=== PATIENT | male | born 1940 | race Caucasian/White ===

== ENCOUNTER 2021-12-31 14:36 | Emergency (ER) | payer OTHER ==
[~2021-12-31] VITALS: Ht 175.3 cm; Wt 72.6 kg
[2021-12-31 14:41] VITALS: BP 121/68
--- NOTE | 2021-12-31 14:41 | NUR ---
BIBA BLS TO ER BED 4
[2021-12-31] MEDS ORDERED: NACL 0.9% 1,000 ML IV ONE (15:05)
--- NOTE | 2021-12-31 15:10 | NUR ---
81 y/o male biba from home c/o generalized weakness x today. Per EMS, patient had a fever on scene, patients temp at triage was 99.5. Patient was discharged from [facility] today and was prescribed Zpack. Denies any chills or SOB. Denies any sick contacts in household. Medical History: AFIB, PACEMAKER, HTN NKDA
[2021-12-31 15:30] LABS: HEMATOCRIT 37.2 % (36-52); HEMOGLOBIN 12.2 g/dL (12.0-18.0); MEAN CORPUSCULAR HEMOGLOBIN 33 pg (27-31); MEAN CORPUSCULAR HGB CONC 33 g/dL (33-37); MEAN CORPUSCULAR VOLUME 100.5 fL (80-94); PLATELET COUNT (AUTO) 116 K/uL (140-450); RED CELL DISTRIBUTION WIDTH 15.5 % (11.6-13.7); WHITE BLOOD COUNT (AUTO) 4.5 K/uL (4.8-10.8)
[2021-12-31 15:49] LABS: MAGNESIUM 1.6 mg/dL (1.8-2.4); PHOSPHORUS 3.2 mg/dL (2.5-4.9)
[2021-12-31 16:00] LABS: ANION GAP 14.6 (8-16); CARBON DIOXIDE 21.6 mmol/L (21-32); CHLORIDE 108 mmol/L (98-107); CREATININE 1.3 mg/dL (0.6-1.3); GLUCOSE 99 mg/dL (74-106); POTASSIUM 4.2 mmol/L (3.5-5.1); SODIUM SERUM 140 mmol/L (136-145); UREA NITROGEN, BLOOD 28 mg/dL (7-18)
[2021-12-31] MEDS ORDERED: MAGNESIUM CHLORIDE 64 MG TABEC PO SCH (16:05)
[2021-12-31 16:38] LABS: MONOCYTES % (MANUAL) 15 % (5-12)
[2021-12-31 16:39] LABS: EOSINOPHILS % (MANUAL) 2 % (0-4)
[2021-12-31 16:40] LABS: LYMPHOCYTES % (MANUAL) 12 % (20-46)
[2021-12-31 17:35] LABS: APPEARANCE,URINE CLEAR (CLEAR); BILIRUBIN,URINE NEGATIVE (NEGATIVE); BLOOD, URINE TRACE-I (NEGATIVE); COLOR,URINE YELLOW (YELLOW); LEUKOCYTE ESTERASE ,URINE NEGATIVE (NEGATIVE); NITRITE, URINE NEGATIVE (NEGATIVE); UGLUCOSE NEGATIVE (NEGATIVE)
--- NOTE | 2021-12-31 17:36 | NUR ---
PT TO ER BED 11
[2021-12-31 18:02] LABS: RBC,URINE NONE SEEN /HPF (0-5); WBC,URINE NONE SEEN /HPF (0-5); YEAST,URINE None Seen /HPF (None Seen)
[2021-12-31 18:03] LABS: TRICHOMONAS,URINE None Seen /HPF (None Seen)
--- NOTE | 2021-12-31 19:00 | NUR ---
Mary-care provided. Provided with clean pants and fresh brief.
--- NOTE | 2021-12-31 19:18 | NUR ---
Report given to JERSEY Barakat for transfer of care.
--- NOTE | 2021-12-31 19:20 | NUR ---
PATIENT TO [facility]
--- NOTE | 2021-12-31 19:32 | NUR ---
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
[2021-12-31 19:35] VITALS: BP 116/60
--- NOTE | 2021-12-31 19:35 | NUR ---
Patient discharged with v/s stable. Written and verbal after care instructions given and explained. Patient verbalized understanding. Wheel Chair Assisted with to car. All questions addressed prior to discharge. Advised to follow up with PMD.
== END 2021-12-31 19:35 | disposition home or self-care (01) ==
LOC: MED 14:36
DX: B34.9 Viral infection, unspecified (principal); Z20.822 Contact with and (suspected) exposure to COVID-19; R05.9 Cough, unspecified; R19.7 Diarrhea, unspecified; R53.1 Weakness; I10 Essential (primary) hypertension; Z95.0 Presence of cardiac pacemaker; R41.82 Altered mental status, unspecified; R94.31 Abnormal electrocardiogram [ECG] [EKG]
CPT/HCPCS: 36415; 70450; 71045; 80048; 81001; 83735; 84100; 84484; 85025; 87040; 87426; 87804; 93005; 96360; 99285; J7030; Q0092